=== PATIENT | female | born 1975 | race Caucasian/White ===

== ENCOUNTER 2016-06-30 18:36 | Emergency (ER) | payer OTHER ==
[~2016-06-30] VITALS: Ht 157.5 cm; Wt 61.7 kg
[~2016-06-30 18:36] MED LIST: ACETAMINOPHEN500 M4 PO; ALPRAZOLAM1 M2 PO; AMOXICILLIN875 M1 PO; DEXTROAMP-AMPHE30 MG PO; FLURAZEPAM HCL30 M1 PO; TYLENOL WITH C1 EACH PO
--- NOTE | 2016-06-30 19:41 | ED UPPER/LOWER EXTREMITY COMPL ---
History of Present Illness General Chief Complaint: Foot or Ankle Injury Stated Complaint: R ANKLE SWELLING Source: patient Exam Limitations: no limitations Vital Signs & Intake/Output Vital Signs & Intake/Output Vital Signs Date Time Temp Pulse Resp B/P B/P Pulse O2 O2 Flow FiO2 Mean Ox Delivery Rate 06/30 1847 97.7 06/30 1844 97.7 99 16 139/73 97 Room Air Allergies Coded Allergies: NO KNOWN ALLERGIES (08/27/10) Reconcile Medications Acetaminophen 500 MG TABLET 650 MG PO Q6H PRN ARTHRITIS (Reported) Alprazolam 1 MG TABLET 1 TAB PO TIDPRN PRN ANXIETY (Reported) Amoxicillin 875 MG TABLET 1 TAB PO BID PRN DENTAL INFECTION Dextroamphetamine/Amphetamine (Dextroamp-Amphetamin 30 MG Tab) 30 MG TABLET 1 TAB PO BID MENTAL HEALTH (Reported) Flurazepam HCl 30 MG CAPSULE 1 TAB PO QPM PRN INSOMNIA (Reported) Ibuprofen 800 MG TABLET 1 TAB PO TID PRN pain Tramadol HCl 50 MG TABLET 1-2 TAB PO TID PRN pain thirty...[id number] Tylenol With Codeine (Tylenol With Codeine #3 Tablet) 300 MG-30 MG TABLET 1 TAB PO Q6HR PRN PAIN Triage Note: PT WAS SWINGING ON A SWING AND WENT TO STOP AND ROLLED HER LEFT ANKLE. PT STATES SHE HEARD A POP Triage Nurses Notes Reviewed? yes Onset: Abrupt Duration: hour(s): Timing: single episode today Severity: mild, moderate Pain/Injury Location: Right: Ankle. Method of Injury: fall Modifying Factors: Worsens With: movement. Associated Symptoms: r ankle swelling : No Patient currently breastfeeds: No HPI: 40 yo woman presents with right ankle pain for the past several hours. "I was swinging on a swing and was stopping... I rolled my right ankle and heard a 'pop'." She notes no other injury. She notes swelling of right ankle with bruising, and difficulty with ambulating. Past History Travel History Traveled to [place] past 21 day No Medical History Any Pertinent Medical History? see below for history Neurological: NONE EENT: NONE Cardiovascular: NONE Respiratory: asthma, pulmonary hypertension Gastrointestinal: NONE Hepatic: NONE Renal: NONE Musculoskeletal: NONE Psychiatric: ADD Endocrine: NONE Surgical History Surgical History: non-contributory Psychosocial History Who do you live with Friend What is your primary language Sinhala Tobacco Use: Current Daily Use Daily Tobacco Use Amount/Type: => 5 Cigarettes daily ETOH Use: occasional use Illicit Drug Use: denies illicit drug use Family History Hx Contributory? No Review of Systems Review of Systems Constitutional: Reports: no symptoms. EENTM: Reports: no symptoms. Respiratory: Reports: no symptoms. Cardiovascular: Reports: no symptoms. Gastrointestinal/Abdominal: Reports: no symptoms. Genitourinary: Reports: no symptoms. Musculoskeletal: Reports: no symptoms. Skin: Reports: no symptoms. Neurological/Psychological: Reports: no symptoms. Hematologic/Endocrine: Reports: no symptoms. Immunological: Reports: no symptoms. All Other Systems: Reviewed and Negative Physical Exam Physical Exam General Appearance: well developed/nourished, mild distress Head: atraumatic Eyes: Bilateral: normal appearance. Ears, Nose, Throat: normal pharynx, normal ENT inspection, hearing grossly normal Neck: normal inspection, supple Cardiovascular/Respiratory: regular rate/rhythm Back: normal inspection Foot Right: swelling and ecchymosis at right lateral malleolus. pain elicited with ROM. no deformity, 2+ distal pulses. Skin: intact, normal color, warm/dry Lymphatic: no anterior cervical kana Progress Differential Diagnosis: fracture, sprain, tendon injury Plan of Care: Orders Procedure Date/time Status Durable Medical Equipment 06/30 2034 Active Diagnostic Imaging: Viewed by Me: Radiology Read. Discussed w/RAD: Radiology Read. Radiology Impression: right ankle... avulsion fx Comments: PATIENT: JACOB JAY PRESENT AGE: 40 PATIENT ACCOUNT NO: [id number] : 73 LOCATION: [facility] ORDERING PHYSICIAN: HUGH CID MD SERVICE DATE: 06/30/16 EXAM TYPE: RAD - XRY-ANKLE 3 OR MORE VIEWS R EXAMINATION: XR ANKLE, RIGHT CLINICAL INFORMATION: Trauma, pain COMPARISON: None TECHNIQUE: AP, lateral, and mortise views of the right ankle. FINDINGS: There is a small bony fragment adjacent to the inferior aspect of the lateral malleolus. Lateral malleolar soft tissue swelling also present. The findings suggest avulsion fracture of the distal lateral malleolus. The ankle mortise is normal and symmetric in appearance. IMPRESSION: Acute distal lateral malleolar avulsion fracture. DICTATED BY: RL DIAZ MD DATE/TIME DICTATED:06/30/161955 HYDRAULIC PRESS IN OPERATOR:CHARI DATE/TIME TRANSCRIBED:06/30/161955 CONFIDENTIAL, DO NOT COPY WITHOUT APPROPRIATE AUTHORIZATION. <Electronically signed in Other Vendor System> SIGNED BY: MARISABEL DIAZ MD 06/30/162000 Departure Departure Disposition: HOME OR SELF CARE Condition: Stable Clinical Impression Primary Impression: Right fibular fracture Referrals: WALLACE RAMOS,MARGO Luciano (PCP/Family) Departure Forms: Customer Survey General Discharge Information Prescriptions: Current Visit Scripts Ibuprofen 1 TAB PO TID PRN pain #30 TAB Tramadol HCl 1-2 TAB PO TID PRN pain #30 TAB thirty...[id number] Procedures Splinting Location: right ankle Manual Alignment Performed: No Hand-Made Type: orthoglass Splint: sugar tong and posterior splint on right ankle. Splint Applied By: splint applied by me Pre-Proc Neuro Vasc Exam: normal Post-Proc Neuro Vasc Exam: normal
--- NOTE | 2016-06-30 20:01 | RADIOLOGY REPORT ---
EXAMINATION: XR ANKLE, RIGHT CLINICAL INFORMATION: Trauma, pain COMPARISON: None TECHNIQUE: AP, lateral, and mortise views of the right ankle. FINDINGS: There is a small bony fragment adjacent to the inferior aspect of the lateral malleolus. Lateral malleolar soft tissue swelling also present. The findings suggest avulsion fracture of the distal lateral malleolus. The ankle mortise is normal and symmetric in appearance. IMPRESSION: Acute distal lateral malleolar avulsion fracture.
[2016-06-30] MEDS ORDERED: IBUPROFEN800 M1 PO (20:30)
[2016-06-30] MEDS ORDERED: TRAMADOL HCL50 M1 PO (20:30)
[2016-06-30 20:42] VITALS: BP 131/71
== END 2016-06-30 20:42 ==
LOC: ERH 18:36
DX: S82.61XA Displaced fracture of lateral malleolus of right fibula, initial encounter for closed fracture (principal); X58.XXXA Exposure to other specified factors, initial encounter; Y92.9 Unspecified place or not applicable; Y93.9 Activity, unspecified
CPT/HCPCS: 73610-RT

== ENCOUNTER 2016-08-22 18:55 | Emergency (ER) | payer OTHER ==
[~2016-08-22] VITALS: Ht 157.5 cm; Wt 68.9 kg
[~2016-08-22 18:55] MED LIST changes: +IBUPROFEN800 M1 PO; +TRAMADOL HCL50 M1 PO
[2016-08-22 19:00] VITALS: BP 120/81
--- NOTE | 2016-08-22 19:06 | ED HAND/WRIST INJURY COMPLAINT ---
History of Present Illness General Chief Complaint: Hand or Wrist Injury Stated Complaint: PT CUT HER FINGER ON THE RT HAND Source: patient, old records Exam Limitations: no limitations Vital Signs & Intake/Output Vital Signs & Intake/Output Vital Signs Date Time Temp Pulse Resp B/P B/P Pulse O2 O2 Flow FiO2 Mean Ox Delivery Rate 08/22 1900 97.7 97 16 120/81 94 Room Air Allergies Coded Allergies: NO KNOWN ALLERGIES (08/27/10) Reconcile Medications Acetaminophen 500 MG TABLET 650 MG PO Q6H PRN ARTHRITIS (Reported) Alprazolam 1 MG TABLET 1 TAB PO TIDPRN PRN ANXIETY (Reported) Amoxicillin 875 MG TABLET 1 TAB PO BID PRN DENTAL INFECTION Dextroamphetamine/Amphetamine (Dextroamp-Amphetamin 30 MG Tab) 30 MG TABLET 1 TAB PO BID MENTAL HEALTH (Reported) Flurazepam HCl 30 MG CAPSULE 1 TAB PO QPM PRN INSOMNIA (Reported) Ibuprofen 800 MG TABLET 1 TAB PO TID PRN pain Tramadol HCl 50 MG TABLET 1-2 TAB PO TID PRN pain thirty...[id number] Tylenol With Codeine (Tylenol With Codeine #3 Tablet) 300 MG-30 MG TABLET 1 TAB PO Q6HR PRN PAIN Triage Note: PT STATES SHE TOOK THE TOP OF HER MIDDLE FINGER OFF ON A GLASS THAT SHE DID NOT KNOW WAS BROKEN IN THE SINK. Triage Nurses Notes Reviewed? yes Occurred: this afternoon Duration: hour(s): (4), constant Timing: recent history Injury Environment: home Severity: moderate Severity Numbers: 7 Pain/Injury Location: Right: 3rd finger. Context: laceration Method of Injury: laceration No Modifying Factors: none Associated Symptoms: none : No Patient currently breastfeeds: No HPI: This is a 40-year-old female presents to ER for evaluation complaining of throbbing aching pain to the right third finger after she sustained laceration earlier this afternoon. She was cleaning out her sink when she cut on a piece of broken glass. She is up-to-date on her tetanus she is right-hand dominant. She is not taken anything for pain and is declining anything when offered. There is no other injury she denies any numbness tingling or difficulty with range of motion of the finger there is no other injury (SENA CORDOVA,ADAMA) Past History Travel History Traveled to [place] past 21 day No Medical History Any Pertinent Medical History? see below for history Neurological: NONE EENT: NONE Cardiovascular: NONE Respiratory: asthma, pulmonary hypertension Gastrointestinal: NONE Hepatic: NONE Renal: NONE Musculoskeletal: NONE Psychiatric: ADD Endocrine: NONE Surgical History Surgical History: non-contributory Psychosocial History Who do you live with Friend What is your primary language Argentine Tobacco Use: Current Daily Use Daily Tobacco Use Amount/Type: => 5 Cigarettes daily ETOH Use: denies use Illicit Drug Use: denies illicit drug use Family History Hx Contributory? No (ADAMA BUNDY) Review of Systems Review of Systems Constitutional: Reports: see HPI. All Other Systems: Reviewed and Negative Comments Review of systems: See HPI, All other systems negative. Constitutional, no chills no fever, no malaise HEENT: no sore throat no congestion Cardiovascular: No chest pain , no palpitation Skin: no rashes, no change in skin Respiratory: No dyspnea no cough no sputum GI: No nausea no vomiting, no diarrhea Muscle skeletal: No joint pain, no back pain, no neck pain, Neurologic: No numbness no headache Psych: No stress Heme/endocrine: No bruising Immunology: No lymphadenopathy (ADAMA BUNDY) Physical Exam Physical Exam General Appearance: well developed/nourished, no apparent distress, alert Hand Left: normal inspection, normal range of motion Hand Right: 3rd finger Comments: Well-developed well-nourished patient in no apparent distress. HEENT: Atraumatic, extraocular motion intact Neck: Supple, FROM Back: FROM Respiratory: No respiratory distress. Patient speaking in full complete sentences. Breath sounds clear to auscultation bilaterally: NO W/R/R Extremities: There is a 1 cm flap laceration noted to the distal aspect of the right third finger, there is no visualized or palpated foreign body. FULL Sensation is noted to the finger capillary refills within normal limits, no subungual hematoma full range of motion Neuro: awake, alert, and oriented to person, place and time. There were no obvious focal neurologic abnormalities. Skin: Warm & dry;No appreciable rash on exposed skin Psych: Mood affect normal, normal memory normal judgment. (ADAMA BUNDY) Progress Differential Diagnosis: contusion, fracture, sprain Plan of Care: Wound was thoroughly irrigated with normal saline Betadine peroxide, KALOSTAT SURGICEL DRESSING APPLIED. Sterile dressing applied discussed with patient return precautions date feel comfortable with plan cleared for discharge (ADAMA BUNDY) Departure Departure Time of Disposition: 1926 Disposition: HOME OR SELF CARE Condition: Stable Clinical Impression Primary Impression: Finger laceration Referrals: WALLACE RAMOS,MARGO Luciano (PCP/Family) Additional Instructions: REST, ICE TYLENOL OR MOTRIN. KEEP DRESSING ON FOR 2 FULL DAYS. BACITRACIN DAILY AFTERWARDS. OBSERVE FOR SIGNS OF INFECTION: REDNESS, WARMTH, SWELLING, DISCHARGE FEVER OR CHILLS. Departure Forms: Customer Survey General Discharge Information (ADAMA BUNDY) PA/PRODUCTION SUPPORT SPECIALIST Co-Sign Statement Statement: ED Attending supervision documentation- I saw and evaluated the patient. I have also reviewed all the pertinent lab results and diagnostic results. I agree with the findings and the plan of care as documented in the PA's/PRODUCTION SUPPORT SPECIALIST's documentation. x I have reviewed the ED Record and agree with the PA's/PRODUCTION SUPPORT SPECIALIST's documentation. [] Additions or exceptions (if any) to the PAs/PRODUCTION SUPPORT SPECIALIST's note and plan are summarized below: [] (DON RAMOS,MASTER) Procedures Laceration/Wound Repair Laceration/Wound Repair: Wound Location: upper extremity (R 3RD) Wound's Depth, Shape: flap, superficial Wound Length (cm): 1 Wound Explored: clean, no foreign body removed, irrigated extensively Irrigated w/ Saline (ccs): 100 Betadine Prep? Yes Anesthesia: digit block Volume Anesthetic (ccs): 5 Wound Repaired With: wound adhesive (KALOSTAT, SURGICEL) Sterile Dressing Applied: Yes Splint Applied? Yes By Who? by me Tetanus Status: up to date (ADAMA BUNDY)
== END 2016-08-22 19:30 ==
LOC: ERH 18:55
DX: S61.212A Laceration without foreign body of right middle finger without damage to nail, initial encounter (principal); W25.XXXA Contact with sharp glass, initial encounter; Y93.89 Activity, other specified; Y92.009 Unspecified place in unspecified non-institutional (private) residence as the place of occurrence of the external cause